=== PATIENT | female | born 1965 | race Caucasian/White ===

== ENCOUNTER 2017-05-15 14:28 | Emergency (ER) | payer MEDICARE, MEDICAID ==
[~2017-05-15] VITALS: Ht 170.2 cm; Wt 113.0 kg
[~2017-05-15 14:28] MED LIST: ACET1CAP18 PO; AMOX500T PO; CELE100C PO; GABA800T PO; LEVO-154 PO; LEXA20TA PO; SUVO1TAB PO; XANA1TAB2 PO
[2017-05-15 14:38] VITALS: BP 114/59; PULSE 68; RESP 16; TEMP 98.2; O2SAT 98
[2017-05-15] MEDS ORDERED: CELE100C PO (14:57)
[2017-05-15] MEDS ORDERED: VITA100T54 PO (14:57)
[2017-05-15] MEDS ORDERED: ARIP1TAB5 PO (14:57)
[2017-05-15] MEDS ORDERED: VITA100T65 PO (14:57)
[2017-05-15] MEDS ORDERED: MULTTAB67 PO (14:57)
[2017-05-15] MEDS ORDERED: KETOROLAC TROMETHAMINE 60 MG/2 ML (IM) VIAL IM ONE (15:00)
[2017-05-15] MEDS ORDERED: ORPHENADRINE INJ 60 MG/2 ML AMP IM ONE (15:00)
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
[2017-05-15] MEDS ORDERED: ROBA500T PO (16:37)
== END 2017-05-15 16:48 | disposition home or self-care (01) ==
LOC: PHED 14:28
DX: S39.012A Strain of muscle, fascia and tendon of lower back, initial encounter (principal); X58.XXXA Exposure to other specified factors, initial encounter
CPT/HCPCS: 72110; 72170; 96372; 99284; J1885; J2360

== ENCOUNTER 2017-05-20 13:31 | Emergency (ER) | payer MEDICARE, MEDICAID ==
[~2017-05-20] VITALS: Ht 167.6 cm; Wt 113.2 kg
[~2017-05-20 13:31] MED LIST changes: -ACET1CAP18 PO; -AMOX500T PO; +ARIP1TAB5 PO; -GABA800T PO; +MULTTAB67 PO; +ROBA500T PO; +VITA100T54 PO; +VITA100T65 PO
[2017-05-20 13:40] VITALS: BP 129/66; PULSE 79; RESP 16; TEMP 98.4; O2SAT 99
[2017-05-20] MEDS ORDERED: KETOROLAC TROMETHAMINE 60 MG/2 ML (IM) VIAL IM ONE (14:30)
[2017-05-20] MEDS ORDERED: ORPHENADRINE INJ 60 MG/2 ML AMP IM ONE (14:30)
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
[2017-05-20] MEDS ORDERED: TRAM50TA PO (14:51)
[2017-05-20] MEDS ORDERED: ROBA750T PO (15:23)
== END 2017-05-20 15:36 | disposition home or self-care (01) ==
LOC: PHEFT 13:31
DX: M54.42 Lumbago with sciatica, left side (principal); Z85.3 Personal history of malignant neoplasm of breast; E11.9 Type 2 diabetes mellitus without complications; M79.7 Fibromyalgia; E07.9 Disorder of thyroid, unspecified
CPT/HCPCS: 96372; 99284; J1885; J2360

== ENCOUNTER 2017-05-30 23:42 | Emergency (ER) | payer MEDICARE, OTHER ==
[~2017-05-30] VITALS: Ht 170.2 cm; Wt 114.0 kg
[~2017-05-30 23:42] MED LIST changes: +ROBA750T PO; +TRAM50TA PO
[2017-05-31 00:07] VITALS: BP 128/62; PULSE 78; RESP 18; TEMP 98.4; O2SAT 96
[2017-05-31 00:29] LABS: BLOOD, URINE NEG (NEG); GLUCOSE,URINE NEG (NEG); KETONE, URINE TRACE mg/dL (NEG); NITRITE,URINE NEG (NEG)
[2017-05-31] MEDS ORDERED: ROBA500T PO (00:30)
[2017-05-31 00:35] LABS: BACTERIA, URINE FEW /hpf; COMMENT (UR) CULT NOT INDICATED; CULTURE IF INDICATED CULT NOT INDICATED; RBC, URINE 0-2 /hpf (0-3); URINE COLOR AMBER (YELLW/STRAW); WBC, URINE 0-2 /hpf (0-5)
[2017-05-31] MEDS ORDERED: CYCL1TAB29 PO (00:38)
[2017-05-31] MEDS ORDERED: MEDR4PAK PO (00:38)
--- NOTE | 2017-05-31 00:38 | PD ---
HPI Chief Complaint: Back/ Neck Pain or Injury Time Seen by Provider: 00:20 Travel History International Travel<30 days: No Contact w/Intl Traveler<30days: No Traveled to known affect area: No History of Present Illness HPI 51-year-old female complains of low back pain and urinary problem. Patient has history of recurrent back pain and has been to the emergency room recently for back pain. Patient had lumbar spine x-ray. X-ray done recently which showed DJD changes. Patient has been taking Robaxin and tramadol for pain. Patient denies any new injury. Patient states that she has some delaying in urination recently. Patient denies any dysuria or frequency. Patient denies any fever chills patient status post gastric bypass surgery and hernia repair in the past. Patient denies any focal weakness or numbness of the extremity. PFSH Past Medical History Depression: Yes Cancer: Yes (BREAST CA) Chemotherapy: Yes (2010) Diabetes: Yes Diminished Hearing: No Fibromyalgia: Yes Gastrointestinal Disorders: Yes Thyroid Disease: Yes ?: Not LMP: 2006 : 2 Para: 3 Past Surgical History Abdominal Surgery: Yes (MESH X6) Section: Yes Cholecystectomy: Yes Genitourinary Surgery: Yes (GASTRIC BYPASS 2003) Mastectomy: Yes (BILAT. WITH IMPLANTS BEHIND MUSCLES) Tonsillectomy: Yes Other Surgery: Yes (THYROID/PARATHYROID) Social History Alcohol Use: No Tobacco Use: Yes Substance Use: No Allergies-Medications (Allergen,Severity, Reaction): Coded Allergies: bupropion (Unverified Allergy, Unknown, HALLIUCINATIONS, 05/31/17) diclofenac (Unverified Adverse Reaction, Unknown, GASTRIC BYPASS, 05/31/17) etodolac (Unverified Adverse Reaction, Unknown, GASTRIC BYPASS, 05/31/17) flurbiprofen (Unverified Adverse Reaction, Unknown, GASTRIC BYPASS, ) ibuprofen (Unverified Adverse Reaction, Unknown, GASTRIC BYPASS, 05/31/17) indomethacin (Unverified Adverse Reaction, Unknown, GASTRIC BYPASS, ) ketoprofen (Unverified Adverse Reaction, Unknown, GASTRIC BYPASS, 05/31/17) ketorolac (Unverified Adverse Reaction, Unknown, GASTRIC BYPASS, 05/31/17) naproxen (Unverified Adverse Reaction, Unknown, GASTRIC BYPASS, 05/31/17) oxaprozin (Unverified Adverse Reaction, Unknown, GASTRIC BYPASS, 05/31/17) Reported Meds & Prescriptions Reported Meds & Active Scripts Active Flexeril (Cyclobenzaprine HCl) 10 Mg Tab 10 Mg PO TID Medrol Dosepak (Methylprednisolone) 4 Mg Dspk 4 Mg PO DIRECTED Per Pharmacist direction Tramadol (Tramadol HCl) 50 Mg Tab 50 Mg PO Q6H PRN Robaxin (Methocarbamol) 500 Mg Tab 500 Mg PO TID Reported Robaxin (Methocarbamol) 500 Mg Tab 500 Mg PO TID Abilify (Aripiprazole) 10 Mg Tab 10 Mg PO DAILY Celebrex (Celecoxib) 100 Mg Cap 100 Mg PO BID Vitamin E 100 Unit Tab Unknown Dose PO DAILY Vitamin B-1 (Thiamine HCl) 100 Mg Tab Unknown Dose PO DAILY Multiple Vitamin 1 Tab 1 Tab PO DAILY Belsomra (Suvorexant) 5 Mg Tab 5 Mg PO HS Xanax (Alprazolam) 1 Mg Tab 1 Mg PO TID PRN Lexapro (Escitalopram Oxalate) 20 Mg Tab 20 Mg PO DAILY Levothyroxine (Levothyroxine Sodium) 175 Mcg Tab 175 Mcg PO DAILY Review of Systems General / Constitutional: No: Fever Eyes: No: Visual changes HENT: No: Headaches Cardiovascular: No: Chest Pain or Discomfort Respiratory: No: Shortness of Breath Gastrointestinal: No: Abdominal Pain Genitourinary: Positive: Hesitancy, No: Dysuria Musculoskeletal: No: Pain Skin: No Rash Neurologic: No: Weakness Psychiatric: No: Depression Endocrine: No: Polydipsia Hematologic/Lymphatic: No: Easy Bruising Physical Exam Narrative GENERAL: Well-nourished, well-developed patient. SKIN: Focused skin assessment warm/dry. HEAD: Normocephalic. EYES: No scleral icterus. No injection or drainage. NECK: Supple, trachea midline. No JVD or lymphadenopathy. CARDIOVASCULAR: Regular rate and rhythm without murmurs, gallops, or rubs. RESPIRATORY: Breath sounds equal bilaterally. No accessory muscle use. GASTROINTESTINAL: Abdomen soft, non-tender, nondistended. MUSCULOSKELETAL: No cyanosis, or edema. BACK: Moderate tenderness on palpation lumbar area, without obvious deformity. No CVA tenderness. Negative straight leg raising. Neurologic exam normal. Data Data Last Documented VS Vital Signs Date Time Temp Pulse Resp B/P (MAP) Pulse Ox O2 Delivery O2 Flow Rate FiO2 05/31/17 00:07 98.4 78 18 128/62 (84) 96 Orders Orders Urinalysis - C+S If Indicated (05/31/17 00:14) Ed Urine Pregnancytest Poc (05/31/17 00:14) Dexamethasone Inj (Decadron Inj) (05/31/17 00:45) Labs Laboratory Tests Test 05/31/17 00:15 Urine Color JOSEY Urine Turbidity CLEAR Urine pH 5.0 Urine Specific [place] GREATER THAN 1.035 Urine Protein NEG mg/dL Urine Glucose (UA) NEG mg/dL Urine Ketones TRACE mg/dL Urine Occult Blood NEG Urine Nitrite NEG Urine Bilirubin NEG Urine Leukocyte Esterase NEG Urine RBC 0-2 /hpf Urine WBC 0-2 /hpf Urine Squamous Epithelial Cells 6-8 /hpf Urine Bacteria FEW /hpf Urine Yeast (Budding) OCC Microscopic Urinalysis Comment CULT NOT INDICATED MDM Medical Decision Making Medical Screen Exam Complete: Yes Emergency Medical Condition: Yes Interpretation(s) UA is negative. Differential Diagnosis Differential diagnosis including lumbar strain, UTI, pyelonephritis, nephrolithiasis. Narrative Course 51-year-old female with recurrent low back pain. Patient also has urinary hesitancy. Decadron 8 mg IM. Diagnosis Primary Impression: Acute exacerbation of chronic low back pain Patient Instructions: General Instructions Additional Instructions: Flexeril as directed. Medrol Dosepak as directed. Follow-up with personal physician and orthopedist. Med/Other Pt SpecificInfo: Prescription(s) given Scripts Cyclobenzaprine (Flexeril) 10 Mg Tab 10 MG PO TID for Muscle Spasm, #90 TAB 0 Refills Prov: Mahad Cain MD 05/31/17 Methylprednisolone Dosepak (Medrol Dosepak) 4 Mg Dspk 4 MG PO DIRECTED, #1 DSPK 0 Refills Per Pharmacist direction Prov: Mahad Cain MD 05/31/17 Disposition: 01 DISCHARGE HOME Condition: Stable Mahad Cain MD May 31, 2017 00:38
[2017-05-31] MEDS ORDERED: DEXAMETHASONE SOD PHOS 4 MG/ML VIAL IM ONE (00:45)
== END 2017-05-31 01:02 | disposition home or self-care (01) ==
LOC: PHED 23:42
DX: M54.5 Low back pain (principal); G89.29 Other chronic pain; R39.11 Hesitancy of micturition; E11.9 Type 2 diabetes mellitus without complications; E07.9 Disorder of thyroid, unspecified; Z72.0 Tobacco use; Z86.59 Personal history of other mental and behavioral disorders; Z85.3 Personal history of malignant neoplasm of breast; Z87.39 Personal history of other diseases of the musculoskeletal system and connective tissue; Z87.19 Personal history of other diseases of the digestive system
CPT/HCPCS: 81001; 84703; 96372; 99284; J1100

== ENCOUNTER 2017-10-14 18:23 | Emergency (ER) | payer MEDICARE, MEDICAID ==
[~2017-10-14] VITALS: Ht 154.9 cm; Wt 122.0 kg
[~2017-10-14 18:23] MED LIST changes: +ABIL10TA8 PO; -ARIP1TAB5 PO; +CYCL10TA PO; +MEDR4PAK PO; -ROBA750T PO
[2017-10-14 18:28] VITALS: BP 118/77; PULSE 104; RESP 20; TEMP 102.7; O2SAT 87
[2017-10-14 19:06] VITALS: O2SAT 94
[2017-10-14 19:07] VITALS: BP 114/65; PULSE 110; RESP 20; TEMP 102.5; O2SAT 94
[2017-10-14] MEDS ORDERED: SODIUM CHLOR 0.9% 1000 ML INJ 1,000 ML IV ONE ×2 (19:15)
[2017-10-14] MEDS ORDERED: ACETAMINOPHEN 325 MG TAB PO ONE (19:15)
--- NOTE | 2017-10-14 19:31 | RADRPT ---
EXAM DATE/TIME: 10/14/2017 19:19 [facility] COMPARISON: No previous studies available for comparison. INDICATIONS : Chest pain for about a week. MEDICAL HISTORY : Carcinoma, breast. SURGICAL HISTORY : Mastectomy, bilateral. Gastric bypass. ENCOUNTER: Initial ACUITY: 1 week PAIN SCORE: 8/10 LOCATION: Bilateral chest Center of chest. FINDINGS: A single view of the chest demonstrates the lungs to be symmetrically aerated without evidence of mas s, infiltrate or effusion. The cardiomediastinal contours are unremarkable. Osseous structures are intact. CONCLUSION: No evidence of acute cardiopulmonary disease. Arthur White MD on October 14, 2017 at 19:28 Board Certified Radiologist. This report was verified electronically.
[2017-10-14 19:41] LABS: CHLORIDE 100 MEQ/L (98-107); SODIUM (NA) 135 MEQ/L (136-145)
[2017-10-14 19:44] LABS: ALBUMIN 3.4 GM/DL (3.4-5.0); BICARBONATE 31.5 MEQ/L (21.0-32.0); CALCIUM 8.7 MG/DL (8.5-10.1); GLUCOSE,RANDOM 195 MG/DL (74-106)
[2017-10-14 19:45] LABS: BLOOD UREA NITROGEN 10 MG/DL (7-18)
[2017-10-14 19:47] LABS: ALT (GPT) 34 U/L (10-53); AST (GOT) 24 U/L (15-37); GLOMERULAR FILTRATION RATE 66 ML/MIN (>89)
[2017-10-14 19:49] LABS: TOTAL BILIRUBIN ADULT 0.3 MG/DL (0.2-1.0); TOTAL PROTEIN 7.3 GM/DL (6.4-8.2)
[2017-10-14 19:50] LABS: ALKALINE PHOSPHATASE 115 U/L (45-117)
--- NOTE | 2017-10-14 19:53 | PD ---
HPI Chief Complaint: Cold / Flu Symptoms Time Seen by Provider: 18:53 Travel History International Travel<30 days: No Contact w/Intl Traveler<30days: No Traveled to known affect area: No History of Present Illness HPI 51-year-old female came to the emergency room with history of flulike symptoms for past 1 week. Since as that her daughter has been sick with influenza and patient has been coughing as well. But she didn't really started getting fever up until today. She said all her joints are aching. She is feeling very weak. She denies any vomiting or diarrhea. Patient had a temperature 102.5 in triage. Her oxygen saturation was low. Patient has some slurred speech and told me that she took her prescribed gabapentin, oxycodone and Xanax today. Her oxygen saturation was 87% on room air. Patient denies having any asthma or COPD. She is a smoker. She had a lot of coffee ground discoloration around her lips and tongue and upon asking she said she had eaten chocolate chip cookie. [facility] Past Medical History Narrative Medical List of her past medical, surgical, social and family history is reviewed from the nursing note. Depression: Yes Cancer: Yes (BREAST CA) Chemotherapy: Yes (2010) Diabetes: Yes Patient Takes Glucophage: Yes Diminished Hearing: No Fibromyalgia: Yes Gastrointestinal Disorders: Yes Immunizations Current: No Thyroid Disease: Yes Tetanus Vaccination: < 5 Years Influenza Vaccination: No ?: Not : 2 Para: 3 Past Surgical History Abdominal Surgery: Yes (MESH X6) Section: Yes Cholecystectomy: Yes Genitourinary Surgery: Yes (GASTRIC BYPASS 2003) Mastectomy: Yes (BILAT. WITH IMPLANTS BEHIND MUSCLES) Tonsillectomy: Yes Other Surgery: Yes (THYROID/PARATHYROID) Social History Alcohol Use: No Tobacco Use: Yes (1 PPD) Substance Use: No Allergies-Medications (Allergen,Severity, Reaction): Coded Allergies: bupropion (Unverified Allergy, Unknown, HALLIUCINATIONS, 05/31/17) diclofenac (Unverified Adverse Reaction, Unknown, GASTRIC BYPASS, 05/31/17) etodolac (Unverified Adverse Reaction, Unknown, GASTRIC BYPASS, 05/31/17) flurbiprofen (Unverified Adverse Reaction, Unknown, GASTRIC BYPASS, ) ibuprofen (Unverified Adverse Reaction, Unknown, GASTRIC BYPASS, 05/31/17) indomethacin (Unverified Adverse Reaction, Unknown, GASTRIC BYPASS, ) ketoprofen (Unverified Adverse Reaction, Unknown, GASTRIC BYPASS, 05/31/17) ketorolac (Unverified Adverse Reaction, Unknown, GASTRIC BYPASS, 05/31/17) naproxen (Unverified Adverse Reaction, Unknown, GASTRIC BYPASS, 05/31/17) oxaprozin (Unverified Adverse Reaction, Unknown, GASTRIC BYPASS, 05/31/17) Comments List of her allergies reviewed from the nursing note. Reported Meds & Prescriptions Reported Meds & Active Scripts Active Flexeril (Cyclobenzaprine HCl) 10 Mg Tab 10 Mg PO TID Medrol Dosepak (Methylprednisolone) 4 Mg Dspk 4 Mg PO DIRECTED Per Pharmacist direction Tramadol (Tramadol HCl) 50 Mg Tab 50 Mg PO Q6H PRN Robaxin (Methocarbamol) 500 Mg Tab 500 Mg PO TID Reported Robaxin (Methocarbamol) 500 Mg Tab 500 Mg PO TID Abilify (Aripiprazole) 10 Mg Tab 10 Mg PO DAILY Celebrex (Celecoxib) 100 Mg Cap 100 Mg PO BID Vitamin E 100 Unit Tab Unknown Dose PO DAILY Vitamin B-1 (Thiamine HCl) 100 Mg Tab Unknown Dose PO DAILY Multiple Vitamin 1 Tab 1 Tab PO DAILY Belsomra (Suvorexant) 5 Mg Tab 5 Mg PO HS Xanax (Alprazolam) 1 Mg Tab 1 Mg PO TID PRN Lexapro (Escitalopram Oxalate) 20 Mg Tab 20 Mg PO DAILY Levothyroxine (Levothyroxine Sodium) 175 Mcg Tab 175 Mcg PO DAILY Narrative Medication List of her home medications reviewed from the nursing note. Review of Systems Except as stated in HPI: all other systems reviewed are Neg General / Constitutional: Positive: Fever Respiratory: Positive: Cough, Shortness of Breath Physical Exam Narrative GENERAL: Lethargic, obese, answering questions with slurred speech, mild distress SKIN: Focused skin assessment warm/dry. HEAD: Atraumatic. Normocephalic. EYES: Pupils equal and round. No scleral icterus. No injection or drainage. ENT: No nasal bleeding or discharge. Tongue is dry and coated with coffee- ground substance NECK: Trachea midline. No JVD. CARDIOVASCULAR: Regular rate and rhythm. No murmur appreciated. RESPIRATORY: No accessory muscle use. Clear to auscultation. Breath sounds equal bilaterally. GASTROINTESTINAL: Abdomen soft, non-tender, nondistended. Hepatic and splenic margins not palpable. MUSCULOSKELETAL: No obvious deformities. No clubbing. No cyanosis. No edema. NEUROLOGICAL: Lethargic. No obvious cranial nerve deficits. Motor grossly within normal limits. Slurred speech. PSYCHIATRIC: Appropriate mood and affect; insight and judgment normal. Data Data Last Documented VS Vital Signs Date Time Temp Pulse Resp B/P (MAP) Pulse Ox O2 Delivery O2 Flow Rate FiO2 10/14/17 21:12 99.2 100 20 80/50 (60) 95 10/14/17 20:45 Room Air 10/14/17 20:15 2.00 Orders Orders Sepsis Workup Initiated (10/14/17 ) Complete Blood Count With Diff (10/14/17 19:03) Comprehensive Metabolic Panel (10/14/17 19:03) Lactic Acid Sepsis Protocol (10/14/17 19:03) Influenzae A/B Antigen (10/14/17 19:03) Blood Culture (10/14/17 19:03) Chest, Single Ap (10/14/17 19:03) Blood Glucose (10/14/17 19:03) Ecg Monitoring (10/14/17 19:03) Iv Access Insert/Monitor (10/14/17 19:03) Oximetry (10/14/17 19:03) Oxygen Administration (10/14/17 19:03) Sodium Chlor 0.9% 1000 Ml Inj (Ns 1000 M (10/14/17 19:15) Sodium Chlor 0.9% 1000 Ml Inj (Ns 1000 M (10/14/17 19:15) Acetaminophen (Tylenol) (10/14/17 19:15) Albuterol-Ipratropium Neb (Duoneb Neb) (10/14/17 20:15) Arterial Blood Gas (Abg) (10/14/17 ) Methylprednisolone So Succ Inj (Solumedr (10/14/17 21:00) Albuterol Neb (Albuterol Neb) (10/14/17 21:00) Labs Laboratory Tests Test 10/14/17 19:00 10/14/17 19:11 10/14/17 20:20 White Blood Count 3.7 TH/MM3 Red Blood Count 5.12 MIL/MM3 Hemoglobin 13.7 GM/DL Hematocrit 41.9 % Mean Corpuscular Volume 81.9 FL Mean Corpuscular Hemoglobin 26.7 PG Mean Corpuscular Hemoglobin Concent 32.6 % Red Cell Distribution Width 12.8 % Platelet Count 101 TH/MM3 Mean Platelet Volume 9.6 FL Neutrophils (%) (Auto) 55.9 % Lymphocytes (%) (Auto) 34.4 % Monocytes (%) (Auto) 9.3 % Eosinophils (%) (Auto) 0.1 % Basophils (%) (Auto) 0.3 % Neutrophils # (Auto) 2.1 TH/MM3 Lymphocytes # (Auto) 1.3 TH/MM3 Monocytes # (Auto) 0.3 TH/MM3 Eosinophils # (Auto) 0.0 TH/MM3 Basophils # (Auto) 0.0 TH/MM3 CBC Comment DIFF FINAL Differential Comment Blood Urea Nitrogen 10 MG/DL Creatinine 0.90 MG/DL Random Glucose 195 MG/DL Total Protein 7.3 GM/DL Albumin 3.4 GM/DL Calcium Level 8.7 MG/DL Alkaline Phosphatase 115 U/L Aspartate Amino Transf (AST/SGOT) 24 U/L Alanine Aminotransferase (ALT/SGPT) 34 U/L Total Bilirubin 0.3 MG/DL Sodium Level 135 MEQ/L Potassium Level 4.2 MEQ/L Chloride Level 100 MEQ/L Carbon Dioxide Level 31.5 MEQ/L Anion Gap 4 MEQ/L Lactic Acid Level 1.0 mmol/L Blood Gas Puncture Site LT RADIAL Blood Gas Patient Temperature 98.6 Blood Gas HCO3 27 mmol/L Blood Gas Base Excess 2.1 mmol/L Blood Gas Oxygen Saturation 86 % Arterial Blood pH 7.37 Arterial Blood Partial Pressure CO2 48 mmHG Arterial Blood Partial Pressure O2 63 mmHG Arterial Blood Oxygen Content 14.8 Vol % Arterial Blood Carboxyhemoglobin 6.0 % Arterial Blood Methemoglobin 1.4 % Blood Gas Hemoglobin 12.2 G/DL Oxygen Delivery Device NASAL CANNULA Blood Gas Liter Flow 2 L/M [facility] Medical Decision Making Medical Screen Exam Complete: Yes Emergency Medical Condition: Yes Medical Record Reviewed: Yes Differential Diagnosis Sepsis, pneumonia, influenza, dehydration Narrative Course 8 PM patient was given 2 L of IV fluid bolus and Tylenol. Some of the blood test results are back. Chemistry and lactic acid is within acceptable limit. Chest x-rays read by the radiologist negative. Awaiting for the rest of the blood test result. She was given DuoNeb. 8:52 PM patient says that she feels better after getting the breathing treatment. However her oxygen saturation went down to 88% on room air. Upon auscultating she had better air entry but some bilateral crackles. Chest x-ray was negative. Influenza was negative. Her blood pressure went down to 80/50 but patient says that her blood pressure often runs in the 80s. She had received 2 L of IV fluid bolus at this point. I was uncomfortable discharging her home and recommended that she should be admitted. I had ordered 2 more albuterol nebulizer and Solu-Medrol. However patient does not want to stay. She was more awake at this point and her was in the room as well. Patient was in capacity to make decisions for herself. She understood the risk of leaving including . She said she will sign AMA. Procedures EKG Prior to Arrival: No Diagnosis Primary Impression: Acute exacerbation of chronic obstructive pulmonary disease (COPD) Additional Impressions: Hypoxia Fever Qualified Codes: R50.9 - Fever, unspecified Viral illness Dehydration Disposition: 07 AGAINST MEDICAL ADVICE Condition: Serious Emanuel Jordan MD Oct 14, 2017 19:53
[2017-10-14 20:12] LABS: AUTOMATED NEUTROPHIL # 2.1 TH/MM3 (1.8-7.7); BASOPHIL % 0.3 % (0.0-2.0); EOSINOPHIL % 0.1 % (0.0-4.0); HEMATOCRIT 41.9 % (35.0-46.0); HEMOGLOBIN 13.7 GM/DL (11.6-15.3); LYMPH % 34.4 % (9.0-44.0); LYMPHOCYTE # 1.3 TH/MM3 (1.0-4.8); MEAN CELL VOLUME 81.9 FL (80.0-100.0); MEAN CORPUSCULAR HEMOGLOBIN 26.7 PG (27.0-34.0); MEAN CORPUSCULAR HGB CONC 32.6 % (32.0-36.0); MEAN PLATELET VOLUME 9.6 FL (7.0-11.0); MONO % 9.3 % (0.0-8.0); MONOCYTE # 0.3 TH/MM3 (0-0.9); NEUT % 55.9 % (16.0-70.0); PLATELET COUNT 101 TH/MM3 (150-450); RED BLOOD COUNT 5.12 MIL/MM3 (4.00-5.30); RED CELL DISTRIBUTION WIDTH 12.8 % (11.6-17.2); WHITE BLOOD COUNT 3.7 TH/MM3 (4.0-11.0)
[2017-10-14 20:15] VITALS: BP 100/62; PULSE 95; RESP 22; TEMP 100.5; O2SAT 94
[2017-10-14] MEDS: RESP: ALBUTEROL 2.5 MG/IPRATROPIUM 0.5 MG NEB (SCH) INH ×2 (20:22→20:23)
[2017-10-14 20:45] VITALS: BP 75/40; PULSE 98; RESP 22; TEMP 100; O2SAT 85
[2017-10-14] MEDS ORDERED: methylPREDNISolone SOD SUCC 125 MG/2 ML VIAL IV PUSH ONE (21:00)
[2017-10-14] MEDS ORDERED: RESP: ALBUTEROL 2.5 MG/3 ML NEB (SCH) INH (21:00)
[2017-10-14 21:12] VITALS: BP 80/50; TEMP 99.2
== END 2017-10-14 21:14 | disposition left against medical advice (07) ==
LOC: PHED 18:23
DX: J44.1 Chronic obstructive pulmonary disease with (acute) exacerbation (principal); B34.9 Viral infection, unspecified; E86.0 Dehydration; R47.81 Slurred speech; F32.9 Major depressive disorder, single episode, unspecified; E11.9 Type 2 diabetes mellitus without complications; M79.7 Fibromyalgia; E07.9 Disorder of thyroid, unspecified; F17.200 Nicotine dependence, unspecified, uncomplicated
CPT/HCPCS: 36600; 71045; 80053; 82805; 83605; 85025; 87040; 87804; 94640; 94664; 96360; 99284; J7030

== ENCOUNTER 2017-10-21 11:17 | Emergency (ER) | payer MEDICARE, MEDICAID ==
[~2017-10-21] VITALS: Ht 170.2 cm; Wt 119.0 kg
[2017-10-21 11:19] VITALS: BP 129/71; PULSE 90; RESP 16; TEMP 98.2; O2SAT 97
[2017-10-21] MEDS ORDERED: VICT18IN SQ (11:37)
[2017-10-21] MEDS ORDERED: GABA100C4 PO (11:38)
[2017-10-21] MEDS ORDERED: ROZE8TAB19 PO (11:38)
[2017-10-21] MEDS ORDERED: CELE100C PO (11:39)
--- NOTE | 2017-10-21 11:49 | PD ---
HPI Chief Complaint: Respiratory Symptoms Time Seen by Provider: 11:31 Travel History International Travel<30 days: No Contact w/Intl Traveler<30days: No Traveled to known affect area: No History of Present Illness HPI The patient was seen and examined in the presence of the nurse. This patient complains of a pain in the upper back near the shoulder blades. No injury. This brought on by deep breath and then promptly resolves. But readily reproducible when she takes of breath. Duration 3 days. Severity is moderate. She was here a week ago with fever and cough. Her fever has resolved. She does have a productive cough still but the pain is new which brought her here. No history of PE. Her breast cancer is remote, 9 years ago. No alleviating factors. Symptoms likely exacerbated by her smoking. PFSH Past Medical History Hx Anticoagulant Therapy: No Depression: Yes Cancer: Yes (BREAST CA) Chemotherapy: Yes (2010) Diabetes: Yes Patient Takes Glucophage: No Diminished Hearing: No Fibromyalgia: Yes Gastrointestinal Disorders: Yes Immunizations Current: No Thyroid Disease: Yes Tetanus Vaccination: < 5 Years Influenza Vaccination: No ?: Not : 2 Para: 3 Past Surgical History Abdominal Surgery: Yes (MESH X6) Section: Yes Cholecystectomy: Yes Genitourinary Surgery: Yes (GASTRIC BYPASS 2003) Mastectomy: Yes (BILAT. WITH IMPLANTS BEHIND MUSCLES) Tonsillectomy: Yes Other Surgery: Yes (THYROID/PARATHYROID) Social History Alcohol Use: No Tobacco Use: Yes (1 PPD) Substance Use: No Allergies-Medications (Allergen,Severity, Reaction): Coded Allergies: bupropion (Unverified Allergy, Unknown, HALLIUCINATIONS, 10/21/17) diclofenac (Unverified Adverse Reaction, Unknown, GASTRIC BYPASS, 10/21/17) etodolac (Unverified Adverse Reaction, Unknown, GASTRIC BYPASS, 10/21/17) flurbiprofen (Unverified Adverse Reaction, Unknown, GASTRIC BYPASS, 10/21/17 ) ibuprofen (Unverified Adverse Reaction, Unknown, GASTRIC BYPASS, 10/21/17) indomethacin (Unverified Adverse Reaction, Unknown, GASTRIC BYPASS, 10/21/17 ) ketoprofen (Unverified Adverse Reaction, Unknown, GASTRIC BYPASS, 10/21/17) ketorolac (Unverified Adverse Reaction, Unknown, GASTRIC BYPASS, 10/21/17) naproxen (Unverified Adverse Reaction, Unknown, GASTRIC BYPASS, 10/21/17) oxaprozin (Unverified Adverse Reaction, Unknown, GASTRIC BYPASS, 10/21/17) Reported Meds & Prescriptions Reported Meds & Active Scripts Active Reported Celebrex (Celecoxib) 100 Mg Cap 100 Mg PO DAILY Rozerem (Ramelteon) 8 Mg Tab 8 Mg PO DAILY Gabapentin 100 Mg Cap 100 Mg PO HS Victoza Inj (Liraglutide Inj) 18 Mg/3 Ml Pen 0.6 Mg SQ ONCE Celebrex (Celecoxib) 100 Mg Cap 100 Mg PO BID Belsomra (Suvorexant) 5 Mg Tab 5 Mg PO HS Xanax (Alprazolam) 1 Mg Tab 1 Mg PO TID PRN Lexapro (Escitalopram Oxalate) 20 Mg Tab 20 Mg PO DAILY Levothyroxine (Levothyroxine Sodium) 175 Mcg Tab 175 Mcg PO DAILY Review of Systems General / Constitutional: No: Fever Eyes: No: Visual changes HENT: No: Headaches Cardiovascular: No: Chest Pain or Discomfort Respiratory: Positive: Cough, No: Shortness of Breath Gastrointestinal: No: Abdominal Pain Genitourinary: No: Dysuria Musculoskeletal: Positive: Pain Skin: No Rash Neurologic: No: Weakness Psychiatric: No: Depression Endocrine: No: Polydipsia Hematologic/Lymphatic: No: Easy Bruising Physical Exam Narrative GENERAL: Well-nourished, well-developed patient in no apparent distress. SKIN: Focused skin assessment reveals no rash and nodules. Skin is Warm and dry. HEAD: Atraumatic. Normocephalic. EYES: Pupils equal and round. No scleral icterus. No injection or drainage. ENT: No nasal bleeding or discharge. Mucous membranes pink and moist. NECK: Trachea midline. No JVD. CARDIOVASCULAR: Regular rate and rhythm. No murmur appreciated. RESPIRATORY: No accessory muscle use. Clear to auscultation. Breath sounds equal bilaterally. GASTROINTESTINAL: Abdomen soft, non-tender, nondistended. Hepatic and splenic margins not palpable. Has easily reducible abdominal wall hernias MUSCULOSKELETAL: No obvious deformities. No clubbing. No cyanosis. No edema. NEUROLOGICAL: Awake and alert. No obvious cranial nerve deficits. Motor grossly within normal limits. Normal speech. PSYCHIATRIC: Appropriate mood and affect; insight and judgment normal. Data Data Last Documented VS Vital Signs Date Time Temp Pulse Resp B/P (MAP) Pulse Ox O2 Delivery O2 Flow Rate FiO2 10/21/17 12:23 100 14 132/78 (96) 98 Room Air 10/21/17 11:19 98.2 Orders Orders Iv Access Insert/Monitor (10/21/17 11:39) Chest, Single Ap (10/21/17 ) Complete Blood Count With Diff (10/21/17 11:39) Basic Metabolic Panel (Bmp) (10/21/17 11:39) D-Dimer (10/21/17 11:39) Prothrombin Time / Inr (Pt) (10/21/17 11:39) Act Partial Throm Time (Ptt) (10/21/17 11:39) Labs Laboratory Tests Test 10/21/17 11:50 White Blood Count 4.3 TH/MM3 Red Blood Count 5.38 MIL/MM3 Hemoglobin 13.8 GM/DL Hematocrit 43.8 % Mean Corpuscular Volume 81.4 FL Mean Corpuscular Hemoglobin 25.7 PG Mean Corpuscular Hemoglobin Concent 31.6 % Red Cell Distribution Width 12.6 % Platelet Count 228 TH/MM3 Mean Platelet Volume 8.0 FL Neutrophils (%) (Auto) 60.8 % Lymphocytes (%) (Auto) 30.3 % Monocytes (%) (Auto) 6.1 % Eosinophils (%) (Auto) 1.5 % Basophils (%) (Auto) 1.3 % Neutrophils # (Auto) 2.5 TH/MM3 Lymphocytes # (Auto) 1.3 TH/MM3 Monocytes # (Auto) 0.3 TH/MM3 Eosinophils # (Auto) 0.1 TH/MM3 Basophils # (Auto) 0.1 TH/MM3 CBC Comment DIFF FINAL Differential Comment Prothrombin Time 10.5 SEC Prothromb Time International Ratio 1.0 RATIO Activated Partial Thromboplast Time 26.8 SEC D-Dimer Quantitative (PE/DVT) 0.48 MG/L FEU Blood Urea Nitrogen 14 MG/DL Creatinine 0.84 MG/DL Random Glucose 174 MG/DL Calcium Level 9.4 MG/DL Sodium Level 137 MEQ/L Potassium Level 4.3 MEQ/L Chloride Level 103 MEQ/L Carbon Dioxide Level 29.1 MEQ/L Anion Gap 5 MEQ/L Estimat Glomerular Filtration Rate 71 ML/MIN MDM Medical Decision Making Medical Screen Exam Complete: Yes Emergency Medical Condition: Yes Medical Record Reviewed: Yes Differential Diagnosis Intercostal muscle strain, PE, pleural effusion Narrative Course I have reviewed the patient's electronic medical record. I reviewed her visit from October 14 2017 including the extensive workup 1148: I've ordered her workup. I have concern for PE given her new onset pleuritic upper back pain without injury. However she is low risk on berry scoring so I will try to rule this out with d-dimer. 12:30: Review chest x-ray. There is only some bibasilar atelectasis. No pneumothorax. CBC normal 1347: Rest of labs are normal including metabolic. D-dimer is 0.48 which will rule out PE in this low risk patient. She does not need CTA. On recheck she is looking asymptomatic with good vital signs It may be that she had musculoskeletal back pain exacerbated by her coughing We discussed smoking cessation and primary care follow-up Diagnosis Primary Impression: Musculoskeletal back pain Additional Impression: Bronchitis Additional Instructions: The patient was advised to follow up with their physician and return if they worsen. Med/Other Pt SpecificInfo: Other Disposition: 01 DISCHARGE HOME Condition: Stable Nando Fine MD Oct 21, 2017 11:49
[2017-10-21 11:58] LABS: AUTOMATED NEUTROPHIL # 2.5 TH/MM3 (1.8-7.7); BASOPHIL # 0.1 TH/MM3 (0-0.2); BASOPHIL % 1.3 % (0.0-2.0); EOSINOPHIL # 0.1 TH/MM3 (0-0.4); EOSINOPHIL % 1.5 % (0.0-4.0); HEMATOCRIT 43.8 % (35.0-46.0); HEMOGLOBIN 13.8 GM/DL (11.6-15.3); LYMPH % 30.3 % (9.0-44.0); LYMPHOCYTE # 1.3 TH/MM3 (1.0-4.8); MEAN CELL VOLUME 81.4 FL (80.0-100.0); MEAN CORPUSCULAR HEMOGLOBIN 25.7 PG (27.0-34.0); MEAN CORPUSCULAR HGB CONC 31.6 % (32.0-36.0); MONO % 6.1 % (0.0-8.0); MONOCYTE # 0.3 TH/MM3 (0-0.9); NEUT % 60.8 % (16.0-70.0); PLATELET COUNT 228 TH/MM3 (150-450); RED BLOOD COUNT 5.38 MIL/MM3 (4.00-5.30); RED CELL DISTRIBUTION WIDTH 12.6 % (11.6-17.2); WHITE BLOOD COUNT 4.3 TH/MM3 (4.0-11.0)
[2017-10-21 12:11] LABS: BICARBONATE 29.1 MEQ/L (21.0-32.0); CALCIUM 9.4 MG/DL (8.5-10.1)
[2017-10-21 12:15] LABS: CREATININE 0.84 MG/DL (0.50-1.00); PROTHROMBIN TIME - PATIENT 10.5 SEC (9.8-11.6)
[2017-10-21 12:17] LABS: D-DIMER 0.48 MG/L FEU (0.00-0.50)
[2017-10-21 12:23] VITALS: BP 132/78; PULSE 100; RESP 14; O2SAT 98
--- NOTE | 2017-10-21 12:43 | RADRPT ---
EXAM DATE/TIME: 10/21/2017 12:29 [place] COMPARISON: CHEST SINGLE AP, October 14, 2017, 19:19. INDICATIONS : Posterior chest pains, cough, short of breath, fever MEDICAL HISTORY : Carcinoma, breast. Diabetes mellitus type II. SURGICAL HISTORY : Mastectomy, bilateral. ENCOUNTER: Initial ACUITY: 3 weeks PAIN SCORE: 7/10 LOCATION: Bilateral chest FINDINGS: A single view of the chest demonstrates bibasilar subsegmental atelectasis. Diminished lung volumes. Heart normal in size. The cardiomediastinal contours are unremarkable. Osseous structures are intact . CONCLUSION: Bibasilar subsegmental atelectasis. Gene Vásquez MD on October 21, 2017 at 12:40 Board Certified Radiologist. This report was verified electronically.
[2017-10-21] MEDS ORDERED: TRAM50TA PO (14:02)
== END 2017-10-21 14:23 | disposition home or self-care (01) ==
LOC: PHED 11:17
DX: M54.9 Dorsalgia, unspecified (principal); J40 Bronchitis, not specified as acute or chronic; F32.9 Major depressive disorder, single episode, unspecified; E11.9 Type 2 diabetes mellitus without complications; M79.7 Fibromyalgia; E07.9 Disorder of thyroid, unspecified; F17.200 Nicotine dependence, unspecified, uncomplicated; Z79.899 Other long term (current) drug therapy
CPT/HCPCS: 71045; 80048; 85025; 85379; 85610; 85730; 99284